=== PATIENT | female | born 1980 | race Caucasian/White ===

== ENCOUNTER 2021-05-04 08:00 | Outpatient (CLI) | payer OTHER | END 2021-05-04 08:30 | disposition home or self-care (01) | LOC: PPH VACUNA 08:00 | PROVIDERS: ATTEND Emergency Medicine Pediatric Emergency Medicine | DX: Z23 Encounter for immunization (principal) ==

== ENCOUNTER 2023-05-13 10:00 | Outpatient (CLI) | payer OTHER | END 2023-05-13 10:10 | disposition home or self-care (01) | LOC: PPH VACUNA 10:00 | PROVIDERS: ATTEND Emergency Medicine Pediatric Emergency Medicine | DX: Z23 Encounter for immunization (principal) ==

== ENCOUNTER 2023-08-31 08:50 | Emergency (ER) | payer OTHER ==
[~2023-08-31] VITALS: Ht 170.2 cm; Wt 111.1 kg
[2023-08-31] MEDS ORDERED: LIPOFEN150 MG PO (09:01)
== END 2023-08-31 14:36 | disposition home or self-care (01) ==
LOC: ER 08:50
DX: M94.0 Chondrocostal junction syndrome [Tietze] (principal); R42 Dizziness and giddiness; Z88.0 Allergy status to penicillin; Z88.8 Allergy status to other drugs, medicaments and biological substances

== ENCOUNTER 2024-05-30 02:17 | Outpatient (CLI) | payer OTHER ==
[~2024-05-30 02:17] MED LIST: LIPOFEN150 MG PO
== END 2024-05-30 03:00 | disposition home or self-care (01) ==
LOC: PPH VACUNA 02:17
PROVIDERS: ATTEND Emergency Medicine Pediatric Emergency Medicine
DX: Z23 Encounter for immunization (principal)

== ENCOUNTER 2024-09-27 07:14 | Emergency (ER) | payer OTHER ==
[~2024-09-27] VITALS: Ht 170.2 cm; Wt 111.1 kg
[2024-09-27] MEDS ORDERED: ORPHENADRINE CITRATE 30 MG/ML AMPUL ONE (08:45)
[2024-09-27] MEDS ORDERED: ORPHENADRINE CITRATE 30 MG/ML AMPUL IM ONE (08:45)
[2024-09-27] MEDS ORDERED: KETOROLAC TROMETHAMINE 60 MG VIAL IM ONE ×2 (08:45)
[2024-09-27] MEDS ORDERED: KETO10TA2 PO (11:06)
[2024-09-27] MEDS ORDERED: NORFLEX100MG PO (11:06)
== END 2024-09-27 11:19 | disposition home or self-care (01) ==
LOC: ER 07:14
DX: G89.11 Acute pain due to trauma (principal); Z88.8 Allergy status to other drugs, medicaments and biological substances; E03.8 Other specified hypothyroidism